=== PATIENT | male | born 1980 ===

== ENCOUNTER 2024-06-21 17:52 | Inpatient (IN) | payer MEDICAID ==
[~2024-06-21] VITALS: Ht 177.8 cm; Wt 81.6 kg
[2024-06-21] MEDS: IV NORMAL SALINE 1000 ML BAG IV ONE ×2 (18:15→21:46)
[2024-06-21 18:20] LABS: BASOPHILS % (AUTO) 0.4 % (0.0-2.0); EOSINOPHILS # (AUTO) 0.1 K/uL (0.0-0.7); EOSINOPHILS % (AUTO) 1.2 % (0.0-6.0); HEMATOCRIT 34.6 % (44.0-54.0); HEMOGLOBIN 11.6 g/dL (14.0-21.0); LYMPHOCYTES % (AUTO) 22.7 % (15.5-46.5); MEAN CORPUSCULAR HEMOGLOBIN 32.3 uug (23.8-33.4); MEAN CORPUSCULAR HGB CONC 34 g/dL (32.5-36.3); MEAN CORPUSCULAR VOLUME 96.3 fL (97.0-120.0); MONOCYTES # (AUTO) 0.4 K/uL (0.1-1.30); MONOCYTES % (AUTO) 8.5 % (1-12); NEUTROPHILS # (AUTO) 3.1 K/uL (1.8-8.9); NEUTROPHILS % (AUTO) 67.2 % (35.5-87.5); PLATELET COUNT (AUTO) 159 K/uL (150-450); RED BLOOD CELL COUNT(AUTO) 3.59 MIL/uL (4.00-6.00); RED CELL DISTRIBUTION WIDTH 13.6 % (12.1-16.2); WHITE BLOOD COUNT (AUTO) 4.6 K/uL (9.0-30.0)
[2024-06-21 18:21] LABS: DIFFERENTIAL COMMENT 1
[2024-06-21] MEDS ORDERED: NALOXONE HCL 0.4 MG/ML AMPUL ONE (18:25)
[2024-06-21 18:26] LABS: CALCIUM 7.9 mg/dL (8.5-10.1); CARBON DIOXIDE 26 mmol/L (21-32); CHLORIDE 110 mmol/L (98-107); CREATININE 0.9 mg/dL (0.7-1.3); GLUCOSE 107 mg/dL (74-106); POTASSIUM 3.8 mmol/L (3.5-5.1); SODIUM SERUM 148 mmol/L (136-145); UREA NITROGEN, BLOOD 7 mg/dL (7-18)
[2024-06-21] MEDS ORDERED: NALOXONE 2 MG/2 ML SYRINGE ONE (18:28)
[2024-06-21 18:42] LABS: ALANINE AMINOTRANSFERASE 21 U/L (16-63); ALBUMIN 3.2 g/dL (3.4-5.0); ALKALINE PHOSPHATASE 65 U/L (50-136); ASPARTATE AMINOTRANSFERASE 27 U/L (15-37); BILIRUBIN,DIRECT 0.1 mg/dL (0.0-0.2); BILIRUBIN,TOTAL 0.3 mg/dL (0.2-1.0); CREATINE KINASE, TOTAL 147 U/L (39-308); TOTAL PROTEIN, SERUM 7.4 g/dL (6.4-8.2)
[2024-06-21 18:44] LABS: ETHANOL < 3 MG/DL (0-10)
[2024-06-21] MEDS ORDERED: PROPOFOL 200 MG/20 ML BOTTLE ONE (19:01)
[2024-06-21] MEDS ORDERED: PROPOFOL 100 ML ONE ×2 (19:03→22:38)
[2024-06-21 19:31] LABS: ALBUMIN 3.2 g/dL (3.4-5.0); BILIRUBIN,DIRECT 0.1 mg/dL (0.0-0.2); BILIRUBIN,TOTAL 0.3 mg/dL (0.2-1.0); TOTAL PROTEIN, SERUM 7.9 g/dL (6.4-8.2)
[2024-06-21] MEDS ORDERED: SUCCINYLCHOLINE CHLORIDE 200 MG/10 ML VIAL ONE (19:45)
[2024-06-21] MEDS: SUCCINYLCHOLINE CHLORIDE 200 MG/10 ML VIAL IV ONE (19:48)
[2024-06-21] MEDS: NALOXONE HCL 0.4 MG/ML AMPUL IV ONE ×2 (19:48→19:49)
[2024-06-21] MEDS: ETOMIDATE 20 MG/10 ML VIAL IV ONE (19:48)
[2024-06-21] MEDS: PROPOFOL 100 ML IV ONE (19:51)
[2024-06-21] MEDS: PROPOFOL 200 MG/20 ML BOTTLE IV ONE (19:52)
[2024-06-21] MEDS: CEFTRIAXONE 1 G in IV DEXTROSE 5% 50 ML IV ONE (20:00)
[2024-06-21 20:13] LABS: ABG BASE EXCESS -2.1 mmol/L (-2.0-3.0); ABG HCO3 22.9 mmol/L (21.0-28.0); ABG PH 7.376 (7.350-7.450); ABG SITE RIGHT FEMORAL; ABG TOTAL HEMOGLOBIN 11.9 G/dL (13.5-17.5); AaDO2 99.6 mmHg; MetHb 0.1 % (0.0-1.5); O2Hb 99.5 % (94.0-98.0); VT, ABG 550 mL
[2024-06-21] MEDS ORDERED: CEFTRIAXONE /D5W 50ML IVPB **ER PYXIS IV ONE (20:30)
[2024-06-21 22:36] LABS: *BILIRUBIN,URIN NEGATIVE (NEGATIVE); *CLARITY,URINE CLEAR (CLEAR); *COLOR,URINE YELLOW (YELLOW); *KETONES,URINE NEGATIVE (NEGATIVE); *PROTEIN,URINE NEGATIVE (NEGATIVE); *UROBILINOGEN,URINE 0.2 E.U./dl (NORMAL); LEUKOCYTE ESTERASE ,URINE NEGATIVE (NEGATIVE); NITRITE, URINE NEGATIVE (NEGATIVE); PH,URINE 6.5 (5.0-8.0); UGLUCOSE NEGATIVE (NEGATIVE)
[2024-06-21 22:37] LABS: *BLOOD, URINE TRACE (NEGATIVE)
[2024-06-21 22:50] LABS: *AMPHETAMINE, URINE POSITIVE (NEGATIVE); *BARBITURATE, URINE NEGATIVE (NEGATIVE); *BENZODIAZEPINE, URINE NEGATIVE (NEGATIVE); *CANNABINOID, URINE NEGATIVE (NEGATIVE); *COCCAINE, URINE NEGATIVE (NEGATIVE); *OPIATE, URINE NEGATIVE (NEGATIVE); *PHENCYCLIDINE SCREEN,URINE NEGATIVE (NEGATIVE); FENTANYL, URINE NEGATIVE (NEGATIVE)
[2024-06-21 23:00] LABS: BACTERIA,URINE NONE SEEN /HPF (NONE SEEN); RBC,URINE 0-3 /HPF (0-3); SQUAMOUS EPITHELIAL CELL,UR NONE SEEN /HPF (NONE SEEN); WBC,URINE NONE SEEN /HPF (0-3)
[2024-06-21] MEDS ORDERED: ONDANSETRON 4 MG/2 ML VIAL IV PRN (23:15)
[2024-06-21] MEDS ORDERED: ACETAMINOPHEN 325 MG TABLET PO PRN (23:15)
[2024-06-21] MEDS ORDERED: ENOXAPARIN SODIUM 40 MG/0.4 ML DISP.SYRIN SQ SCH (23:15)
[2024-06-21] MEDS ORDERED: REMEDY ESSENTIAL ZINC PASTE 113 GM TP PRN (23:15)
[2024-06-21] MEDS ORDERED: PROPOFOL 100 ML IV PRN (23:30)
[2024-06-22] MEDS ORDERED: PROPOFOL 100 ML ONE ×4 (02:42→13:35)
[2024-06-22 05:37] LABS: BASOPHILS % (AUTO) 0.4 % (0.0-2.0); EOSINOPHILS # (AUTO) 0.1 K/uL (0.0-0.7); EOSINOPHILS % (AUTO) 1.2 % (0.0-6.0); HEMATOCRIT 34.9 % (44.0-54.0); LYMPHOCYTES # (AUTO) 1.3 K/uL (0.8-4.8); MEAN CORPUSCULAR HEMOGLOBIN 33.2 uug (23.8-33.4); MEAN CORPUSCULAR HGB CONC 35 g/dL (32.5-36.3); MEAN CORPUSCULAR VOLUME 96.2 fL (97.0-120.0); MONOCYTES # (AUTO) 0.3 K/uL (0.1-1.30); MONOCYTES % (AUTO) 7.2 % (1-12); NEUTROPHILS % (AUTO) 64.2 % (35.5-87.5); PLATELET COUNT (AUTO) 138 K/uL (150-450); RED BLOOD CELL COUNT(AUTO) 3.62 MIL/uL (4.00-6.00); RED CELL DISTRIBUTION WIDTH 13.9 % (12.1-16.2); WHITE BLOOD COUNT (AUTO) 4.7 K/uL (9.0-30.0)
[2024-06-22 05:44] LABS: DIFFERENTIAL COMMENT 1
[2024-06-22 06:03] LABS: THYROID STIMULATING HORMONE 1.546 mIU/mL (0.358-3.740)
[2024-06-22 06:20] LABS: CALCIUM 7.3 mg/dL (8.5-10.1); CARBON DIOXIDE 27 mmol/L (21-32); CHLORIDE 111 mmol/L (98-107); CHOLESTEROL 108 mg/dL (<200); CREATININE 0.8 mg/dL (0.7-1.3); FERRITIN 43 ng/mL (26-388); GLUCOSE 84 mg/dL (74-106); HDL CHOLESTEROL 47 mg/dL (40-60); MAGNESIUM 1.8 mg/dL (1.8-2.4); PHOSPHOROUS 2.5 mg/dL (2.5-4.9); POTASSIUM 3.9 mmol/L (3.5-5.1); SODIUM SERUM 146 mmol/L (136-145); TRIGLYCERIDES 50 MG/DL (30-150); UREA NITROGEN, BLOOD 6 mg/dL (7-18)
[2024-06-22] MEDS ORDERED: ENOXAPARIN SODIUM 40 MG/0.4 ML DISP.SYRIN SQ ONE (08:56)
[2024-06-22] MEDS ORDERED: PANTOPRAZOLE SODIUM 40 MG VIAL ONE (08:57)
[2024-06-22] MEDS: PANTOPRAZOLE SODIUM 40 MG VIAL IV SCH (09:00)
[2024-06-22] MEDS: ENOXAPARIN SODIUM 40 MG/0.4 ML DISP.SYRIN SQ SCH (09:00)
[2024-06-22 09:16] LABS: IRON, SERUM 79 ug/dL (50-175)
[2024-06-22] MEDS: IV D5W 1000ML 1,000 ML IV PRN (11:00)
[2024-06-22] MEDS ORDERED: METOCLOPRAMIDE HCL 10 MG/2 ML VIAL ONE (15:04)
[2024-06-22] MEDS: METOCLOPRAMIDE HCL 10 MG/2 ML VIAL IV ONE (15:05)
[2024-06-22 15:35] VITALS: O2SAT 100
[2024-06-22] MEDS ORDERED: LORAZEPAM 2 MG/1 ML VIAL ONE (15:42)
[2024-06-22] MEDS: LORAZEPAM 2 MG/1 ML VIAL IV ONE ×2 (15:50)
[2024-06-22] MEDS ORDERED: diphenhydrAMINE 50 MG/1 ML VIAL ONE (15:53)
[2024-06-22] MEDS: diphenhydrAMINE 50 MG/1 ML VIAL IV ONE (15:57)
[2024-06-22 17:10] LABS: ABG BASE EXCESS -2.7 mmol/L (-2.0-3.0); ABG HCO3 24.5 mmol/L (21.0-28.0); ABG PCO2 52.8 mmHg (35.0-48.0); ABG PH 7.285 (7.350-7.450); ABG PO2 < 40.5 mmHg (83.0-108.0); ABG SITE LEFT BRACHIAL; ABG TOTAL HEMOGLOBIN 13.3 G/dL (13.5-17.5); AaDO2 50.6 mmHg; COHb 0.5 % (0.5-1.5); MetHb 0.2 % (0.0-1.5); O2Hb 47.3 % (94.0-98.0)
[2024-06-22 17:30] VITALS: O2SAT 100
[2024-06-22] MEDS ORDERED: LORAZEPAM 1 MG TABLET PO PRN (18:15)
[2024-06-22 22:30] VITALS: O2SAT 98
[2024-06-22 23:07] VITALS: BP 95/53; TEMP 98.3; O2SAT 94
[2024-06-23] VITALS (7 sets, daily range): BP systolic 87–98; BP diastolic 41–60; TEMP 97.8–99.6; O2SAT 93–98
[2024-06-23 07:00] LABS: BASOPHILS % (AUTO) 0.2 % (0.0-2.0); EOSINOPHILS % (AUTO) 0.4 % (0.0-7.0); HEMATOCRIT 32.1 % (36.7-47.1); LYMPHOCYTES # (AUTO) 1.3 K/uL (0.8-4.8); MEAN CORPUSCULAR HEMOGLOBIN 32.7 uug (23.8-33.4); MEAN CORPUSCULAR HGB CONC 34 g/dL (32.5-36.3); MEAN CORPUSCULAR VOLUME 95.4 fL (73.0-96.2); MONOCYTES # (AUTO) 0.6 K/uL (0.1-1.30); MONOCYTES % (AUTO) 7.6 % (0.0-11.0); NEUTROPHILS # (AUTO) 6.5 K/uL (1.8-8.9); NEUTROPHILS % (AUTO) 76.8 % (38.5-71.5); PLATELET COUNT (AUTO) 146 K/uL (152-348); RED BLOOD CELL COUNT(AUTO) 3.36 MIL/uL (4.06-5.63); RED CELL DISTRIBUTION WIDTH 13.4 % (12.1-16.2); WHITE BLOOD COUNT (AUTO) 8.4 K/uL (3.6-10.2)
[2024-06-23 07:04] LABS: DIFFERENTIAL COMMENT 1
[2024-06-23 07:15] LABS: CALCIUM 7.2 mg/dL (8.5-10.1); MAGNESIUM 1.5 mg/dL (1.8-2.4); PHOSPHOROUS 3.3 mg/dL (2.5-4.9); POTASSIUM 3.5 mmol/L (3.5-5.1)
[2024-06-23] MEDS: MAGNESIUM SULFATE/D5W 100 ML IV SCH (11:57)
[2024-06-23] MEDS: CYANOCOBALAMIN 1,000 MCG TABLET PO SCH (13:50)
[2024-06-24] VITALS: BP 97/55; TEMP 99.8; O2SAT 96
[2024-06-24 07:09] LABS: BASOPHILS % (AUTO) 0.2 % (0.0-2.0); EOSINOPHILS % (AUTO) 0.4 % (0.0-7.0); HEMATOCRIT 34.4 % (36.7-47.1); HEMOGLOBIN 11.9 g/dL (12.5-16.3); LYMPHOCYTES # (AUTO) 1.1 K/uL (0.8-4.8); LYMPHOCYTES % (AUTO) 15.2 % (20.5-51.5); MEAN CORPUSCULAR HEMOGLOBIN 32.9 uug (23.8-33.4); MEAN CORPUSCULAR HGB CONC 35 g/dL (32.5-36.3); MEAN CORPUSCULAR VOLUME 95.3 fL (73.0-96.2); MONOCYTES # (AUTO) 0.6 K/uL (0.1-1.30); NEUTROPHILS # (AUTO) 5.5 K/uL (1.8-8.9); NEUTROPHILS % (AUTO) 76.2 % (38.5-71.5); PLATELET COUNT (AUTO) 150 K/uL (152-348); RED BLOOD CELL COUNT(AUTO) 3.61 MIL/uL (4.06-5.63); RED CELL DISTRIBUTION WIDTH 13.2 % (12.1-16.2); RETICULOCYTE COUNT 0.8 % (0.4-2.2); WHITE BLOOD COUNT (AUTO) 7.2 K/uL (3.6-10.2)
[2024-06-24 07:23] LABS: CALCIUM 7.6 mg/dL (8.5-10.1); CREATININE 1.1 mg/dL (0.6-1.3); MAGNESIUM 1.8 mg/dL (1.8-2.4); PHOSPHOROUS 2.9 mg/dL (2.5-4.9); POTASSIUM 4.3 mmol/L (3.5-5.1)
[2024-06-24 07:24] LABS: DIFFERENTIAL COMMENT 1
[2024-06-24 08:00] VITALS: BP 100/58; TEMP 98.9; O2SAT 98
[2024-06-24 08:06] LABS: AFP, TUMOR MARKER 2.1 ng/mL (0.0-5.7); CANCER AG, 125 9.8 U/mL (Not Estab.); CARCINOEMBRYONIC AG (CEA) 3.6 ng/mL (0.0-4.7)
[2024-06-24 08:15] LABS: *RHEUMATOID FACTOR SCREEN NEGATIVE (NEGATIVE)
[2024-06-24 15:22] LABS: PROSTATE SPECIFIC ANTIGEN 0.17 ng/mL (0.00-4.00)
[2024-06-24 15:23] LABS: FREE PSA < 0.06 ng/mL (0.00-45)
[2024-06-24 16:00] VITALS: BP 96/53; TEMP 98.9; O2SAT 98
[2024-06-24 20:00] VITALS: BP 101/59; TEMP 98.1; O2SAT 98
[2024-06-25] MEDS ORDERED: PANTOPRAZOLE SODIUM 40 MG TABLET.DR PO SCH (07:00)
[2024-06-26 00:10] LABS: HEPATITIS B SURFACE AB, QUAL Reactive (.); HEPATITIS B SURFACE AG Negative (Negative); HEPATITIS C VIRUS ANTIBODY Non Reactive (Non Reactive)
[2024-06-26 03:08] LABS: *IMMUNOGLOBULIN G, SERUM 1817 mg/dL (603-1613); IMMUNOGLOBULIN A, SERUM 363 mg/dL (90-386); IMMUNOGLOBULIN M, SERUM 170 mg/dL (20-172)
[2024-06-26 04:06] LABS: FOLATE (FOLIC ACID), SERUM 7.9 ng/mL (>3.0)
[2024-06-27 07:06] LABS: *HIV-1 log10 RNA 4.855 (.)
[2024-06-28 05:07] LABS: A/G RATIO 0.8 (0.7-1.7); ALBUMIN 3.1 g/dL (2.9-4.4); ALPHA-1-GLOBULIN 0.3 g/dL (0.0-0.4); ALPHA-2-GLOBULIN 0.7 g/dL (0.4-1.0); BETA GLOBULIN 0.9 g/dL (0.7-1.3); GAMMA GLOBULIN 1.8 g/dL (0.4-1.8); GLOBULIN, TOTAL 3.7 g/dL (2.2-3.9); M-SPIKE Not Observed g/dL (Not Observed); PROTEIN, TOTAL 6.8 g/dL (6.0-8.5)
[2024-06-28 12:10] LABS: *ANTI-SCLERODERMA-70 AB <0.2 AI (0.0-0.9); *RNP ANTIBODIES <0.2 AI (0.0-0.9); *SJOGREN'S ANTI-SS-A 0.2 AI (0.0-0.9); *SJOGREN'S ANTI-SS-B <0.2 AI (0.0-0.9); *SMITH ANTIBODIES <0.2 AI (0.0-0.9); ANTI-DNA(DS) AB, QN <1 IU/mL (0-9); ANTI-NUCLEAR AB DIRECT Negative (Negative)
== END 2024-06-25 00:25 | disposition left against medical advice (07) | DRG 812 ==
LOC: ER 17:52 → TRANSITION 06-22 00:38 → EDBD 06-22 00:38 → DOU3 06-22 20:02 → TELE-TD3 06-22 20:21 → MEDSURG3 06-24 00:02
PROVIDERS: ADMIT Nurse Practitioner Family; ATTEND Nurse Practitioner Family
PROC: 5A1935Z Respiratory Ventilation, Less than 24 Consecutive Hours (ICD-10-PCS; principal; 2024-06-22)
PROC: 0BH17EZ Insertion of Endotracheal Airway into Trachea, Via Natural or Artificial Opening (ICD-10-PCS; 2024-06-22)
DX: T43.621A Poisoning by amphetamines, accidental (unintentional), initial encounter (principal); J96.00 Acute respiratory failure, unspecified whether with hypoxia or hypercapnia; G92.8 Other toxic encephalopathy; E44.1 Mild protein-calorie malnutrition; E87.0 Hyperosmolality and hypernatremia; D69.6 Thrombocytopenia, unspecified; S32.011A Stable burst fracture of first lumbar vertebra, initial encounter for closed fracture; E88.09 Other disorders of plasma-protein metabolism, not elsewhere classified; F15.10 Other stimulant abuse, uncomplicated; S00.12XA Contusion of left eyelid and periocular area, initial encounter; X58.XXXA Exposure to other specified factors, initial encounter; Y92.410 Unspecified street and highway as the place of occurrence of the external cause; H54.7 Unspecified visual loss; Y92.488 Other paved roadways as the place of occurrence of the external cause; M48.061 Spinal stenosis, lumbar region without neurogenic claudication; Z53.29 Procedure and treatment not carried out because of patient's decision for other reasons; D64.9 Anemia, unspecified; C20 Malignant neoplasm of rectum; R59.1 Generalized enlarged lymph nodes
CPT/HCPCS: 36415; 36600; 70030-TC; 70450; 71045; 72125; 72148; 82105; 82378; 82746; 82784; 82803; 83550; 83605; 83615; 83735; 84100; 84153; 84155; 84165; 84443; 84484; 85025; 85730; 86038; 86140; 86301; 86334; 86430; 86706; 86803; 87040; 87340; 87536; 94002; 95819; 99082-TC; A4606; A4663; C1758; G0378; G0480; J0330; J0696; J1200; J1650; J2060; J2310; J2470; J2765; J3475; J3490; J7040; J7042; J7070